=== PATIENT | female | born 1945 | race Caucasian/White ===

== ENCOUNTER → 2022-07-31 | Outpatient (CLI) | payer MEDICARE | END | disposition home or self-care (01) | LOC: RAH 15:11 | DX: Z12.31 Encounter for screening mammogram for malignant neoplasm of breast (principal); N63.15 Unspecified lump in the right breast, overlapping quadrants; N63.41 Unspecified lump in right breast, subareolar | CPT/HCPCS: 77067 ==

== ENCOUNTER → 2022-08-15 | Outpatient (CLI) | payer MEDICARE | END | disposition home or self-care (01) | LOC: RAH 13:42 | DX: N63.15 Unspecified lump in the right breast, overlapping quadrants (principal); R92.8 Other abnormal and inconclusive findings on diagnostic imaging of breast | CPT/HCPCS: 76642; 77065 ==

== ENCOUNTER → 2022-09-12 | Outpatient (CLI) | payer MEDICARE ==
[~2022-09-12] MED LIST: LIDOCAINE HCL 1% 20 ML VIAL ONE
[2022-09-12 09:21] LABS: INR 0.94 (0.85-1.15); PROTHROMBIN TIME 10.3 SEC (9.6-11.6)
[2022-09-12 09:22] LABS: PARTIAL THROMBOPLASTIN TIME 26.1 SEC (26.3-35.5)
== END | disposition home or self-care (01) ==
LOC: RAH 07:27
DX: N63.11 Unspecified lump in the right breast, upper outer quadrant (principal); C50.911 Malignant neoplasm of unspecified site of right female breast; M19.90 Unspecified osteoarthritis, unspecified site; E78.00 Pure hypercholesterolemia, unspecified; K21.9 Gastro-esophageal reflux disease without esophagitis; I10 Essential (primary) hypertension; G47.00 Insomnia, unspecified; Z79.01 Long term (current) use of anticoagulants; C85.96 Non-Hodgkin lymphoma, unspecified, intrapelvic lymph nodes; R22.2 Localized swelling, mass and lump, trunk
CPT/HCPCS: 19083; 36415; 85610; 85730; 88305; 88342

== ENCOUNTER → 2024-01-21 | Outpatient (CLI) | payer MEDICARE | END | disposition home or self-care (01) | LOC: RAH 10:50 | PROVIDERS: ATTEND Internal Medicine Medical Oncology | DX: R92.30 Dense breasts, unspecified (principal); Z85.3 Personal history of malignant neoplasm of breast; Z98.82 Breast implant status | CPT/HCPCS: 77066 ==